=== PATIENT | female | born 1985 | race Two or more races ===

== ENCOUNTER 2020-07-25 07:38 | Day surgery (SDC) | payer OTHER ==
[2020-07-25] MEDS ORDERED: NAPR500T14 PO (13:07)
[2020-07-25] MEDS ORDERED: MORGIDOX100 MG PO (13:07)
== END 2020-07-25 16:50 | disposition home or self-care (01) ==
LOC: CIR.AMB 07:38
PROVIDERS: ATTEND Obstetrics & Gynecology
DX: N84.0 Polyp of corpus uteri (principal); D25.0 Submucous leiomyoma of uterus; Z20.828 Contact with and (suspected) exposure to other viral communicable diseases